=== PATIENT | male | born 2005 | race Caucasian/White ===

== ENCOUNTER 2023-11-20 14:43 | Emergency (ER) | payer OTHER ==
[2023-11-20] MEDS ORDERED: ONDANSETRON 4 MG/2 ML VIAL ONE (15:22)
[2023-11-20] MEDS ORDERED: FAMOTIDINE 20 MG TAB ONE (15:23)
[2023-11-20] MEDS ORDERED: NA CHLORIDE 0.9% 1,000 ML ONE (15:23)
[2023-11-20 15:43] LABS: Absolute Lymphocytes (CBC) 0.4 K/uL (0.7-4.9); Absolute Monocytes 0.7 K/uL (0.1-1.3); Absolute Neutrophil 7.5 K/uL (1.8-8.0); Basophils % 0.2 % (0-1.3); Eosinophils % 0.2 % (0-4.4); Hematocrit 42.6 % (39.6-49.0); Hemoglobin 14.7 g/dL (13.6-17.9); Lymphocytes % 5.1 % (15.3-44.8); MCH 31.6 pg (27.0-35.0); MCHC 34.4 g/dL (32.0-36.0); MCV 91.9 fL (80-100); MPV 9.1 fL (7.6-11.3); Monocytes % 7.6 % (3.3-12.3); Neutrophils % 86.9 % (41.7-73.7); Platelets 142 thou/uL (152-406); RBC Red Blood Cell Count 4.64 M/uL (4.33-5.43); Red Cell Distribution Width 13.3 % (12.1-15.2)
[2023-11-20 15:49] LABS: Specific Gravity 1.025 (1.005-1.030); Sqamous Epithelial None Seen /HPF (None Seen); Urine Bacteria None Seen /HPF (<20); Urine Bilirubin NEGATIVE (Negative); Urine Blood Negative (Negative); Urine Clarity Clear (Clear); Urine Color Light-Yellow (Yellow); Urine Culture Reflex Order NOT NEEDED; Urine Glucose NEGATIVE (Negative); Urine Ketones 2+ (Negative); Urine Microscopic Reflex YN ORDER UMIC; Urine Mucus Slight /HPF (None Seen); Urine Nitrite NEGATIVE (Negative); Urine Protein TRACE (Negative); Urine RBC None Seen /HPF (None Seen); Urine Urobilinogen Normal (Normal); Urine WBC <5 /HPF (<5)
[2023-11-20 16:02] LABS: Albumin 4.3 g/dL (3.4-5.0); Albumin/Globulin Ratio 1.2 (1.1-1.8); Bilirubin Total 2.1 mg/dL (0.2-1.0); Globulin 3.6 g/dL (2.3-3.5); Protein, Total 7.9 g/dL (6.4-8.2)
[2023-11-20 16:44] LABS: Blood Morphology Comment NOT SEEN (NOT SEEN); Platelet Estimate ADEQ; White Blood Cell Scan OK (OK)
--- NOTE | 2023-11-20 17:43 | RAD REPORT ---
EXAM DESCRIPTION: CT - Abdomen Pelvis W Contrast - 11/20/2023 4:56 pm CLINICAL HISTORY: Abdominal pain COMPARISON: none. TECHNIQUE: Computed axial tomography of the abdomen pelvis was obtained. 100 cc Isovue-300 was admin istered intravenously. Oral contrast was not requested which limits evaluation of bowel and appendix All CT scans are performed using dose optimization technique as appropriate and may include automated exposure control or mA/KV adjustment according to patient size. FINDINGS: The liver, spleen, pancreas, adrenal and kidneys appear unremarkable. There is no evidence of diverticulitis. The appendix is not well visualized secondary lack oral contrast administration but probably is borde rline enlarged. No stranding seen within adjacent fat. No ascites Moderate amount stool within the colon IMPRESSION: Moderate amount stool within the colon Borderline enlargement of the appendix. Correlation is needed see if the patient has clinical symptom s to suggest early appendicitis
--- NOTE | 2023-11-20 18:23 | ER ---
Nurse's Notes [facility] Name: Kodi Torres Age: 18 yrs Sex: Male : 2005 Arrival Date: 11/20/2023 Time: 14:43 Bed 18 Private MD: Diagnosis: Nausea with vomiting, unspecified Presentation: 11/19 15:01 Chief complaint: Patient states: Woke up this mornign with dizziness, nausea, and cm10 vomiting. Pt also reports sore throat and headache. Coronavirus screen: Client denies travel out of the [place] in the last 14 days. Ebola Screen: Patient denies travel to an Ebola-affected area in the 21 days before illness onset. No symptoms or risks identified at this time. Initial Sepsis Screen: Does the patient meet any 2 criteria? No. Patient's initial sepsis screen is negative. Does the patient have a suspected source of infection? No. Patient's initial sepsis screen is negative. Risk Assessment: Do you want to hurt yourself or someone else? Patient reports no desire to harm self or others. Onset of symptoms was November 20, 2023. 15:01 Method Of Arrival: Ambulatory cm10 15:01 Acuity: MALDONADO 3 cm10 Triage Assessment: 15:02 General: Appears in no apparent distress. comfortable, Behavior is calm, cooperative. cm10 Neuro: No deficits noted. Level of Consciousness is awake, alert, obeys commands, Oriented to person, place, time, situation, Appropriate for age. Respiratory: No deficits noted. Airway is patent Respiratory effort is even, unlabored, Respiratory pattern is regular, symmetrical. Historical: - Allergies: 15:02 No Known Allergies; cm10 - Home Meds: 15:02 None [Active]; cm10 - PMHx: 15:02 None; cm10 - PSHx: 15:02 None; cm10 - Immunization history:: Adult Immunizations up to date. - Infectious Disease History:: Denies. - Social history:: Smoking status: Patient denies any tobacco usage or history of. Screenin:37 [facility] ED Fall Risk Assessment (Adult) History of falling in the last 3 months, ld1 including since admission No falls in past 3 months (0 pts) Confusion or Disorientation No (0 pts) Intoxicated or Sedated No (0 pts) Impaired Gait No (0 pts) Mobility Assist Device Used No (0 pt) Altered Elimination No (0 pt) Score/Fall Risk Level 0 - 2 = Low Risk Oriented to surroundings, Maintained a safe environment, Educated pt \T\ family on fall prevention, incl call for assistance when getting out of bed, Assessed \T\ reinforced patient's understanding of fall precautions, Provided non-skid footwear, Hourly rounding (assess needs \T\ fall precautionary measures) done, Used ambulatory aids as needed (educated on \T\ assisted with), Used gait belt as appropriate. Abuse screen: Denies threats or abuse. Denies injuries from another. Nutritional screening: No deficits noted. Tuberculosis screening: No symptoms or risk factors identified. Assessment: 15:37 General: Appears in no apparent distress. comfortable, Behavior is calm, cooperative, ld1 appropriate for age. Pain: Denies pain. Neuro: Level of Consciousness is awake, alert, obeys commands, Oriented to person, place, time, situation, Appropriate for age. Cardiovascular: Capillary refill < 3 seconds Patient's skin is warm and dry. Respiratory: Airway is patent Respiratory effort is even, unlabored. GI: Abdomen is flat, non-distended. : Reports blood in urine. EENT: No signs and/or symptoms were reported regarding the EENT system. Derm: No signs and/or symptoms reported regarding the dermatologic system. Musculoskeletal: No signs and/or symptoms reported regarding the musculoskeletal system. 17:00 Reassessment: Patient appears in no apparent distress at this time. No changes from ld1 previously documented assessment. Patient and/or family updated on plan of care and expected duration. Pain level reassessed. Patient is alert, oriented x 3, equal unlabored respirations, skin warm/dry/pink. 18:33 Reassessment: Patient appears in no apparent distress at this time. No changes from ld1 previously documented assessment. Patient and/or family updated on plan of care and expected duration. Pain level reassessed. Patient is alert, oriented x 3, equal unlabored respirations, skin warm/dry/pink. Vital Signs: 15:01 BP 129 / 76; Pulse 89; Resp 16; Temp 97.9; Pulse Ox 100% on R/A; Weight 78.02 kg; cm10 Height 5 ft. 11 in. ; Pain 8/10; 15:37 BP 126 / 79; Pulse 84; Resp 18; Pulse Ox 100% on R/A; ld1 17:22 BP 135 / 72; Pulse 66; Resp 18; Pulse Ox 100% on R/A; ld1 18:36 BP 122 / 76; Pulse 74; Resp 18; Pulse Ox 99% on R/A; ld1 15:01 Body Mass Index 23.99 (78.02 kg, 180.34 cm) cm10 15:01 Pain Scale: Adult cm10 ED Course: 14:45 Patient arrived in ED. im 15:02 Triage completed. cm10 15:03 Amanda Jordan PA-C is PHCP. sb4 15:03 Noe Bran MD is Attending Physician. sb4 15:03 Arm band placed on Patient placed in an exam room, on a stretcher. cm10 15:14 Jaelyn Klein, JOSE is Primary Nurse. ld1 15:37 Patient has correct armband on for positive identification. Placed in gown. Bed in low ld1 position. Call light in reach. Side rails up X2. monitor and storage bin tender on. Pulse ox on. NIBP on. Door closed. Noise minimized. Warm blanket given. 15:37 Initial lab(s) drawn, by me, sent to lab. Urine collected: clean catch specimen. mb9 Inserted saline lock: 20 gauge in right antecubital area, using aseptic technique. Blood collected. Flushed with 10 mL NS. 15:37 Urinalysis w/ reflexes Sent. mb9 15:37 CBC with Diff Sent. mb9 15:37 CMP Sent. mb9 15:37 Lipase Sent. mb9 15:37 No provider procedures requiring assistance completed. ld1 15:48 Urinalysis w/ reflexes Sent. ld1 16:58 CT Abd/Pelvis - IV Contrast Only In Process Unspecified. EDMS 18:36 IV discontinued, intact, bleeding controlled, No redness/swelling at site. ld1 Administered Medications: 15:48 Drug: NS 0.9% IV 1000 ml IV at 1 bolus Per protocol; 1000 mL bolus Route: IV; Rate: 1 ld1 bolus; Site: right antecubital; 18:32 Follow up: Response: No adverse reaction; IV Status: Completed infusion; IV Intake: ld1 1000ml 15:48 Drug: Famotidine IVP 20 mg IVP once; dilute with 10 mL 0.9% NaCl; give over 2 minutes ld1 Route: IVP; Site: right antecubital; 18:32 Follow up: Response: No adverse reaction ld1 15:48 Drug: Ondansetron IVP 4 mg IVP once; over 2 minutes Route: IVP; Site: right antecubital;ld1 18:32 Follow up: Response: No adverse reaction ld1 18:31 Drug: Ketorolac IVP 15 mg IVP once Route: IVP; Site: right antecubital; ld1 18:32 Follow up: Response: No adverse reaction ld1 Medication: 15:37 VIS not applicable for this client. ld1 Intake: 18:32 IV: 1000ml; Total: 1000ml. ld1 Outcome: 18:22 Discharge ordered by MD. sb4 18:36 Discharged to home ambulatory, ld1 18:36 Condition: stable 18:36 Discharge instructions given to patient, Instructed on discharge instructions, follow up and referral plans. medication usage, Demonstrated understanding of instructions, follow-up care, medications, Prescriptions given X 1, 18:36 Patient left the ED. ld1 Signatures: Dispatcher [employer] EDMS Jaelyn Klein RN RN ld1 Amanda Jordan, PA-C PA-C Natalie Wisdom RN RN mb9 Martha Grossman Clarissa RN RN cm10
--- NOTE | 2023-11-20 18:23 | EDPHYS ---
Physician Documentation [facility] Name: Kodi Torres Age: 18 yrs Sex: Male : 2005 Arrival Date: 11/20/2023 Time: 14:43 Bed 18 Private MD: ED Physician Noe Bran HPI: 11/19 15:11 This 18 yrs old Male presents to ER via Ambulatory with complaints of Nausea/Vomiting. sb4 15:11 The patient presents to the emergency department with nausea, vomiting. Onset: The sb4 symptoms/episode began/occurred this morning. Possible causes: alcohol. The symptoms are aggravated by nothing. The symptoms are alleviated by nothing. Associated signs and symptoms: The patient has no apparent associated signs or symptoms. The patient has not experienced similar symptoms in the past. The patient has not recently seen a physician. Historical: - Allergies: 15:02 No Known Allergies; cm10 - Home Meds: 15:02 None [Active]; cm10 - PMHx: 15:02 None; cm10 - PSHx: 15:02 None; cm10 - Immunization history:: Adult Immunizations up to date. - Infectious Disease History:: Denies. - Social history:: Smoking status: Patient denies any tobacco usage or history of. ROS: 15:11 Constitutional: Negative for fever, chills, and weight loss, sb4 15:11 Abdomen/GI: Positive for abdominal pain, nausea and vomiting, 15:11 All other systems are negative, Exam: 15:11 Constitutional: This is a well developed, well nourished patient who is awake, alert, sb4 and in no acute distress. Head/Face: Normocephalic, atraumatic. Eyes: Extra-ocular motions intact. Periorbital areas with no swelling, redness, or edema. ENT: Mucous membranes moist. Cardiovascular: Regular rate and rhythm with a normal S1 and S2. Respiratory: Lungs have equal breath sounds bilaterally, clear to auscultation and percussion. No rales, rhonchi or wheezes noted. No increased work of breathing, no retractions or nasal flaring. Abdomen/GI: Soft, non-tender, no distension. Skin: Warm, dry with normal turgor. Normal color with no rashes, no lesions, and no evidence of cellulitis. MS/ Extremity: Pulses equal, no cyanosis. Neurovascular intact. Full, normal range of motion. Neuro: Awake and alert, GCS 15, oriented to person, place, time, and situation. Motor strength 5/5 in all extremities. Sensory grossly intact. Vital Signs: 15:01 BP 129 / 76; Pulse 89; Resp 16; Temp 97.9; Pulse Ox 100% on R/A; Weight 78.02 kg; cm10 Height 5 ft. 11 in. ; Pain 8/10; 15:37 BP 126 / 79; Pulse 84; Resp 18; Pulse Ox 100% on R/A; ld1 17:22 BP 135 / 72; Pulse 66; Resp 18; Pulse Ox 100% on R/A; ld1 18:36 BP 122 / 76; Pulse 74; Resp 18; Pulse Ox 99% on R/A; ld1 15:01 Body Mass Index 23.99 (78.02 kg, 180.34 cm) cm10 15:01 Pain Scale: Adult cm10 MDM: 15:03 Patient medically screened. sb4 18:22 Data reviewed: vital signs, nurses notes, lab test result(s), radiologic studies, and sb4 as a result, I will discharge patient. Counseling: I had a detailed discussion with the patient and/or guardian regarding the historical points, exam findings, and any diagnostic results supporting the discharge/admit diagnosis, lab results, radiology results, to return to the emergency department if symptoms worsen or persist or if there are any questions or concerns that arise at home. 18:23 ED course: CT scan showed possible enlargement of appendix. Patient has no abdominal sb4 tenderness, no rebound, no guarding. I have a low suspicion for acute appendicitis. Will discharge home with return precautions. 11/19 15:09 Order name: CBC with Diff; Complete Time: 16:45 sb4 11/19 15:09 Order name: CMP; Complete Time: 16:04 sb4 11/19 15:09 Order name: Lipase; Complete Time: 16:04 sb4 11/19 15:09 Order name: Urinalysis w/ reflexes; Complete Time: 15:50 sb4 11/19 15:58 Order name: CBC Smear Scan; Complete Time: 16:45 EDMS 11/19 16:05 Order name: CT Abd/Pelvis - IV Contrast Only; Complete Time: 17:47 sb4 11/19 15:09 Order name: IV Saline Lock; Complete Time: 15:37 sb4 11/19 15:09 Order name: Labs collected and sent; Complete Time: 15:37 sb4 11/19 17:48 Order name: PO challenge; Complete Time: 17:57 sb4 Administered Medications: 15:48 Drug: NS 0.9% IV 1000 ml IV at 1 bolus Per protocol; 1000 mL bolus Route: IV; Rate: 1 ld1 bolus; Site: right antecubital; 18:32 Follow up: Response: No adverse reaction; IV Status: Completed infusion; IV Intake: ld1 1000ml 15:48 Drug: Famotidine IVP 20 mg IVP once; dilute with 10 mL 0.9% NaCl; give over 2 minutes ld1 Route: IVP; Site: right antecubital; 18:32 Follow up: Response: No adverse reaction ld1 15:48 Drug: Ondansetron IVP 4 mg IVP once; over 2 minutes Route: IVP; Site: right antecubital;ld1 18:32 Follow up: Response: No adverse reaction ld1 18:31 Drug: Ketorolac IVP 15 mg IVP once Route: IVP; Site: right antecubital; ld1 18:32 Follow up: Response: No adverse reaction ld1 Disposition: 16:03 Co-signature as Attending Physician, Noe Bran MD I agree with the assessment and gustabo plan of care. Disposition Summary: 11/20/23 18:22 Discharge Ordered Notes: Location: Home sb4 Problem: new sb4 Symptoms: have improved sb4 Condition: Stable sb4 Diagnosis - Nausea with vomiting, unspecified sb4 Followup: sb4 - With: Emergency Department - When: As needed - Reason: Trouble breathing, Worsening of condition Discharge Instructions: - Discharge Summary Sheet sb4 - Nausea and Vomiting, Adult sb4 Forms: - Patient Portal Instructions sb4 - Leadership Thank You Letter sb4 Prescriptions: - ondansetron 4 mg Oral Tablet,disintegrating - take 1 tablet ORAL route every 6 hours; 12 tablet; Refills: 0, Product sb4 Selection Permitted Signatures: Dispatcher [employer] Noe Huertas MD MD cha Sims, Lauren RN RN ld1 Amanda Jordan PA-C PABroderick sb4 Terese Padron RN RN cm10
[2023-11-20] MEDS ORDERED: KETOROLAC 30 MG/ML INJ ONE (18:24)
[2023-11-20 19:05] VITALS: TEMP 97.9
[2023-11-20 19:09] VITALS: BP 122/76; O2SAT 99
== END 2023-11-20 18:36 | disposition home or self-care (01) ==
LOC: ER 14:43
DX: R11.2 Nausea with vomiting, unspecified (principal); R10.9 Unspecified abdominal pain
CPT/HCPCS: 36415; 74177; 80053; 81001; 83690; 85025; 96361; 96374; 96375; 99285; J2405; J7030; Q9967